=== PATIENT | male | born 1965 | race African-American/Black ===

== ENCOUNTER 2020-12-05 09:58 | Emergency (ER) | payer OTHER ==
[~2020-12-05] VITALS: Ht 172.7 cm; Wt 95.0 kg
[2020-12-05 10:53] LABS: HEMATOCRIT 42.8 % (39.0-50.0); HEMOGLOBIN 13.5 g/dl (14.0-18.0); IMMATURE GRANULOCYTES 0.2 % (0.0-5.0); MEAN CELL VOLUME 83.1 fL CALC (80.0-100.0); MEAN CORPUSCULAR HGB 26.2 pG CALC (26.0-32.0); MEAN CORPUSCULAR HGB CONC 31.5 g/dL CAL (32.0-36.0); NEUT# 3.83 thou/uL (1.82-7.42); RED BLOOD COUNT 5.15 mill/uL (4.70-6.10); RED CELL DISTRI WIDTH 13.7 % (11.5-15.5)
[2020-12-05 11:05] LABS: ALBUMIN 4.2 g/dL (3.2-5.0); BILIRUBIN, TOTAL 0.8 mg/dL (0.0-1.4); CREATININE 1.9 mg/dL (0.7-1.3); POTASSIUM 3.5 mmol/l (3.5-5.1); TOTAL PROTEIN 8.1 g/dL (6.3-8.2)
[2020-12-05 11:31] VITALS: BP 189/84
== END 2020-12-05 11:32 | DRG 923 ==
LOC: ED 09:58 → EDBD 09:58 → ED 11:06
PROVIDERS: Family Medicine
DX: T79.A21A Traumatic compartment syndrome of right lower extremity, initial encounter (principal); M25.572 Pain in left ankle and joints of left foot; I10 Essential (primary) hypertension; T46.5X6A Underdosing of other antihypertensive drugs, initial encounter; V04.90XA Pedestrian on foot injured in collision with heavy transport vehicle or bus, unspecified whether traffic or nontraffic accident, initial encounter; Y99.0 Civilian activity done for income or pay; Z91.128 Patient's intentional underdosing of medication regimen for other reason